=== PATIENT | male | born 1955 | race Caucasian/White ===

== ENCOUNTER → 2020-03-30 06:44 | Outpatient (CLI) | payer OTHER, SELFPAY ==
[2020-03-30 08:33] LABS: Cholesterol 168 mg/dL (140-199); HDL Cholesterol 42 mg/dL (40-60); LDL Cholesterol Calculated 76 mg/dL (<100); Triglycerides 250 mg/dL (35-150)
== END ==
PROVIDERS: PCP Family Medicine; Referring Provider Family Medicine; Visit Provider Family Medicine
DX: E78.5 Hyperlipidemia, unspecified (principal); Z12.5 Encounter for screening for malignant neoplasm of prostate
CPT/HCPCS: 36415; 80061; G0103

== ENCOUNTER → 2022-08-18 09:04 | Outpatient (CLI) | payer MEDICARE, SELFPAY ==
[2022-08-18 09:59] LABS: Add Manual Diff / Slide Review NO; Basophils Absolute Auto 0 /uL (0-100); Basophils Percent Auto 0.9 % (0-2); Eosinophils Absolute Auto 0 /uL (0-450); Hemoglobin 15.3 g/dL (13.5-17.5); Lymphocytes Absolute Auto 1200 /uL (1100-4500); Mean Corpuscular Hemoglobin 29.4 PG (26-34); Mean Corpuscular Volume 86.5 fL (80-100); Monocytes Absolute Auto 500 /uL (0-900); Monocytes Percent Auto 10.1 % (3-14); Neutrophils Absolute Auto 3100 /uL (1500-7000); Platelet Count 167 X10^3/uL (150-400); Red Blood Cell Count 5.21 X10^6/uL (4.5-5.9); Red Cell Distribution Width 14.1 % (11.6-14.8)
[2022-08-18 10:33] LABS: Alanine Aminotransferase 22 IU/L (<50); Albumin 4.2 g/dL (3.5-5.0); Albumin Globulin Ratio 1.6 (1.0-2.8); Alkaline Phosphatase 58 U/L (38-126); Aspartate Aminotransferase 30 IU/L (17-59); Bilirubin Total 1.1 mg/dL (0.2-1.3); Blood Urea Nitrogen 14 mg/dL (9-20); Calcium 8.6 mg/dL (8.4-10.2); Carbon Dioxide 28 mmol/L (22-32); Chloride 105 mmol/L (98-107); Cholesterol 190 mg/dL (140-199); Estimated Glomerular Filt Rate > 60 mL/min (>60); Globulin 2.7 g/dL (1.7-4.1); Glucose 85 mg/dL (80-110); HDL Cholesterol 53 mg/dL (40-60); HEMOLYSIS < 15 (0-50); LDL Cholesterol Calculated 117 mg/dL (<100); Potassium 4.7 mmol/L (3.4-5.1); Sodium 139 mmol/L (137-145); Total Protein 6.9 g/dL (6.3-8.2); Triglycerides 100 mg/dL (35-150)
[2022-08-18 10:58] LABS: Prostate Specific Antigen Scrn 1.82 ng/mL (0.1-4.0)
== END ==
PROVIDERS: PCP Family Medicine; Referring Provider Family Medicine; Visit Provider Family Medicine
DX: E78.1 Pure hyperglyceridemia (principal); Z12.5 Encounter for screening for malignant neoplasm of prostate; J45.909 Unspecified asthma, uncomplicated; N40.1 Benign prostatic hyperplasia with lower urinary tract symptoms; R35.0 Frequency of micturition; Z87.442 Personal history of urinary calculi
CPT/HCPCS: 36415; 80053; 80061; 85025; G0103

== ENCOUNTER → 2023-01-30 14:38 | Outpatient (CLI) | payer MEDICARE, SELFPAY ==
--- NOTE | 2023-01-30 14:39 | DI.RAD.S_ITS ---
PROCEDURE: XR FOOT LT MIN 3V INDICATIONS: LEFT FOOT PAIN TECHNIQUE: 3 views of the foot were acquired. COMPARISON: None. FINDINGS: Bones: No fractures or dislocations. Well-defined plantar and dorsal calcaneal enthesophytes are seen. Mild osteoarthritic changes are noted throughout left foot. No suspicious bony lesions. Soft tissues: No tibiotalar joint effusion. Achilles tendon appears normal. IMPRESSION: No left foot fracture or dislocation. Mild left foot osteoarthritis. Calcaneal enthesophytes. Dictated by: Conrado Prakash M.D. on 01/30/2023 at 16:31 Approved by: Conrado Prakash M.D. on 01/30/2023 at 16:31
== END ==
PROVIDERS: PCP Family Medicine; Referring Provider Family Medicine; Visit Provider Family Medicine
DX: M77.42 Metatarsalgia, left foot (principal); M19.072 Primary osteoarthritis, left ankle and foot; M77.32 Calcaneal spur, left foot
CPT/HCPCS: 73630

== ENCOUNTER → 2023-08-29 14:38 | Outpatient (CLI) | payer MEDICARE, SELFPAY ==
[2023-08-29 15:21] LABS: Add Manual Diff / Slide Review NO; Basophils Absolute Auto 100 /uL (0-100); Basophils Percent Auto 0.6 % (0-2); Eosinophils Absolute Auto 0 /uL (0-450); Eosinophils Percent Auto 0.5 % (2-4); Hematocrit 44.4 % (41-53); Lymphocytes Absolute Auto 1500 /uL (1100-4500); Lymphocytes Percent Auto 17.4 % (25-40); Mean Corpuscular HGB Conc 33.9 % (30-36); Mean Corpuscular Hemoglobin 29.2 PG (26-34); Mean Corpuscular Volume 86.2 fL (80-100); Monocytes Absolute Auto 600 /uL (0-900); Monocytes Percent Auto 7.2 % (3-14); Neutrophils Absolute Auto 6400 /uL (1500-7000); Neutrophils Percent Auto 74.3 % (50-75); Platelet Count 194 X10^3/uL (150-400); Red Blood Cell Count 5.15 X10^6/uL (4.5-5.9); Red Cell Distribution Width 14.1 % (11.6-14.8); White Blood Cell Count 8.6 X10^3/uL (4.5-11.0)
[2023-08-29 16:07] LABS: Alanine Aminotransferase 20 IU/L (<50); Albumin 4.4 g/dL (3.5-5.0); Albumin Globulin Ratio 1.8 (1.0-2.8); Alkaline Phosphatase 65 U/L (38-126); Aspartate Aminotransferase 31 IU/L (17-59); BUN Creatinine Ratio 20.3 (6-22); Bilirubin Total 0.8 mg/dL (0.2-1.3); Blood Urea Nitrogen 13 mg/dL (9-20); Calcium 9.1 mg/dL (8.4-10.2); Carbon Dioxide 29 mmol/L (22-32); Chloride 108 mmol/L (98-107); Cholesterol 178 mg/dL (140-199); Estimated Glomerular Filt Rate > 60 mL/min (>60); Globulin 2.5 g/dL (1.7-4.1); Glucose 79 mg/dL (80-110); HDL Cholesterol 48 mg/dL (40-60); HEMOLYSIS < 15 (0-50); LDL Cholesterol Calculated 97 mg/dL (<100); Potassium 4.4 mmol/L (3.4-5.1); Sodium 140 mmol/L (137-145); Total Protein 6.9 g/dL (6.3-8.2); Triglycerides 165 mg/dL (35-150)
[2023-08-29 16:31] LABS: Prostate Specific Antigen Scrn 1.63 ng/mL (0.1-4.0)
== END ==
PROVIDERS: PCP Family Medicine; Referring Provider Family Medicine; Visit Provider Family Medicine
DX: Z00.00 Encounter for general adult medical examination without abnormal findings (principal); E78.2 Mixed hyperlipidemia; Z12.5 Encounter for screening for malignant neoplasm of prostate; J45.909 Unspecified asthma, uncomplicated; N40.0 Benign prostatic hyperplasia without lower urinary tract symptoms; E78.1 Pure hyperglyceridemia
CPT/HCPCS: 36415; 80053; 80061; 82172; 85025; G0103

== ENCOUNTER → 2024-03-04 14:18 | Outpatient (CLI) | payer MEDICARE, SELFPAY | PROVIDERS: PCP Family Medicine; Visit Provider Physician Assistant | DX: R30.0 Dysuria (principal); R35.0 Frequency of micturition; R35.1 Nocturia | CPT/HCPCS: 87086 ==

== ENCOUNTER → 2024-03-14 10:58 | Outpatient (CLI) | payer MEDICARE, SELFPAY ==
[2024-03-14 12:04] LABS: Add Manual Diff / Slide Review NO; Basophils Absolute Auto 0 /uL (0-100); Basophils Percent Auto 0.7 % (0-2); Eosinophils Absolute Auto 100 /uL (0-450); Hematocrit 43.3 % (41-53); Hemoglobin 14.6 g/dL (13.5-17.5); Lymphocytes Absolute Auto 1200 /uL (1100-4500); Lymphocytes Percent Auto 18.5 % (25-40); Mean Corpuscular HGB Conc 33.6 % (30-36); Mean Corpuscular Volume 86.4 fL (80-100); Monocytes Absolute Auto 500 /uL (0-900); Monocytes Percent Auto 7.2 % (3-14); Neutrophils Absolute Auto 4700 /uL (1500-7000); Neutrophils Percent Auto 72.6 % (50-75); Platelet Count 257 X10^3/uL (150-400); Red Blood Cell Count 5.02 X10^6/uL (4.5-5.9); Red Cell Distribution Width 14.6 % (11.6-14.8); White Blood Cell Count 6.5 X10^3/uL (4.5-11.0)
[2024-03-14 12:22] LABS: Alanine Aminotransferase 20 IU/L (<50); Albumin 4.2 g/dL (3.5-5.0); Albumin Globulin Ratio 1.6 (1.0-2.8); Alkaline Phosphatase 72 U/L (38-126); Aspartate Aminotransferase 32 IU/L (17-59); BUN Creatinine Ratio 16.7 (6-22); Bilirubin Total 0.6 mg/dL (0.2-1.3); Blood Urea Nitrogen 12 mg/dL (9-20); Calcium 9.6 mg/dL (8.4-10.2); Carbon Dioxide 26 mmol/L (22-32); Chloride 106 mmol/L (98-107); Estimated Glomerular Filt Rate > 60 mL/min (>60); Globulin 2.7 g/dL (1.7-4.1); Glucose 84 mg/dL (80-110); HEMOLYSIS < 15 (0-50); Sodium 138 mmol/L (137-145); Total Protein 6.9 g/dL (6.3-8.2)
[2024-03-14 12:48] LABS: Prostate Specific Antigen 2.78 ng/mL (0.10-4.00)
== END ==
PROVIDERS: PCP Family Medicine; Referring Provider Family Medicine; Visit Provider Family Medicine
DX: N40.1 Benign prostatic hyperplasia with lower urinary tract symptoms (principal); N40.0 Benign prostatic hyperplasia without lower urinary tract symptoms
CPT/HCPCS: 36415; 80053; 84153; 85025

== ENCOUNTER 2024-08-13 13:45 | Outpatient (RCR) | payer MEDICARE, SELFPAY ==
--- NOTE | 2024-06-25 16:00 | PT.OIE ---
Current Diagnoses Overactive bladder (06/25/24) Past Medical History (Last Reviewed 04/03/24 @ 16:56 by Emanuel Wooten DO) Actinic keratosis Asbestos exposure Asthma BPH (benign prostatic hyperplasia) Chicken pox Hearing loss Kidney stones (~2008) Skin cancer (~2018) Past Surgical History (Last Reviewed 04/03/24 @ 16:56 by Emanuel Wooten DO) Anesthesia H/O lithotripsy (~2008) Visit Care Team Role Provider Type Westley Morrison MD Family Provider Physician Primary Care Provider Specialty: Family Practice Address: [address] [place] [address] Email: [email or web address] Emanuel Wooten DO Attending Provider Physician Referring Provider Specialty: Urology Address: [address] [place] [address], [facility] Fax: Email: Physical Therapy Initial Evaluation PT-OP-A Visit Information Start: 06/25/24 13:47 Freq: Status: Active Protocol: Document 06/25/24 13:45 [facility] (Rec: 06/25/24 17:16 [facility]ES [facility] [id number]) Out-Patient Physical Therapy Visit Information Visit Information Visit Type Initial Evaluation Visit Start Time 13:45 Visit Stop Time 14:30 Visit Number 1 Evaluation Information Evaluation Date 06/25/24 PT-OP-B Current Condition Start: 06/25/24 13:47 Freq: Status: Active Protocol: Document 06/25/24 13:45 [facility] (Rec: 06/25/24 14:37 [facility]CLUDES [facility] [id number]) Current Condition History of Current Condition Onset Date 5-6 months ago Current Complaints c/o perineum pain, urinary urgency, nocturia History of Current Condition Moises reports he is experiencing pain inbetween the scrotum and rectum that started 5-6 months ago with a insidious onset. His pain is primarily at night or with prolonged sitting. At night it bothers him the most. He reports a increase sense of urinary urgency at night and he is waking 3 times per night . He also feels he needs to know where the bathroom is during the day. The urgency did start before the pain. He describes a pain in the end of the penis as well at times , no pain with erection. 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 HE likes to play [employer] ball and was in [employer] [place] and didn't feel the pain then. During the day he is voiding approx pt is on a vegetarian diet, he drinks very little coffee, he has one cup of tea in the am and one bottle of water. He does feel he could drink more water during the day. Treatment Goals Patient/Caregiver Goals Treatment goals include reducing pain from the perineum and decreasing urinary urgency especially at night. PT-OP-C Subjective Start: 06/25/24 13:47 Freq: Status: Active Protocol: Document 06/25/24 13:45 [facility] (Rec: 06/26/24 12:38 [facility]ES [facility] [id number]) Patient Questionnaires Pelvic Pain and Urgency/Frequency Patient Symptom Scale Pelvic Pain Score 19 Other Questionnaire Name and Score with the Ndze pelvic dysfunction screening protocol Moises reports he sometimes has pelvic pain that exceeds a 3 on the 1-10 pain scale He often has to get up to void 2 or more times per night prolonged sitting increases his symptoms PT-OP-I Pelvic Floor Start: 06/25/24 13:47 Freq: Status: Active Protocol: Document 06/25/24 13:45 [facility] (Rec: 06/26/24 12:38 [facility]CLUDES [facility] [id number]) Pelvic Floor Assessment Urine Pelvic Floor Surgery No Other Urinary Symptoms nocturia, perineum pain that is worse at night or with prolonged sitting, complaints of urinary urgency Voiding Frequency pt was given a bladder diary to fill out but he feels he voids 1xm per hr Nocturia 3 Pelvic Clock Pelvic Clock 3-6 Tightness Pelvic Clock 6-9 Tightness Pelvic Clock 9-12 Tightness Pelvic Clock Other pelvic floor and perineum were assessed externally, there is a pressure type pain with palpation over the perineum, no tenderness at the ischiums B or transverse perineal muscles. Moises has a difficult time relaxing the pelvic floor following a contraction Contraction Ability Voluntary Contraction Moderate Voluntary Relaxation Moderate Comments Pelvic Floor Comments difficulty relaxing the pelvic floor musculature PT-OP-J Posture/Palpation/Skin Start: 06/25/24 13:47 Freq: Status: Active Protocol: Document 06/25/24 13:45 [facility] (Rec: 06/26/24 13:06 [facility]CLUDES [facility] [id number]) Palpation Assessment Location perineum Palpation Findings Soft Tissue Tightness,Muscle Guarding,Tenderness PT-OP-K Range of Motion Start: 06/25/24 17:18 Freq: Status: Active Protocol: Document 06/25/24 13:45 [facility] (Rec: 06/25/24 17:20 [facility] [id number]) Hip Goniometric Range of Motion Hip Active Flexion w/Knee Flexed 90 Straight Leg Raise 55 Internal Rotation 20 External Rotation 25 Left Flexion w/Knee Flexed 90 Straight Leg Raise 45 Internal Rotation 15 External Rotation 20 Hip ROM Limitations Hip ROM Limitations Soft Tissue Tightness Comments hamstring length limited L>R at 45 L 55 R tightness in hip ER/IR decreased hip flexion B PT-OP-Q Treatments Start: 06/25/24 13:47 Freq: Status: Active Protocol: Document 06/25/24 13:45 [facility] (Rec: 06/25/24 17:18 [facility] [id number]) Therapeutic Exercises Supine Exercises piriformis stretch Supine Exercise Name pt to rest ankle on opp knee Side bilateral Reps/Minutes hold 30 sec to a min x 2 modified squat stretch Reps/Minutes hold 1-2 min Self-Care/Home Management Treatment Education Patient Education Home Exercise Program Other Education pt was educated in urge deference technique and bladder irritants were reviewed. PT-OP-T Assessment and Plan Start: 06/25/24 13:47 Freq: Status: Active Protocol: Document 06/25/24 13:45 [facility] (Rec: 06/26/24 09:41 [facility]ES [facility] [id number]) Physical Therapy Assessment Rehab Potential Rehabilitation Potential Good Evaluation Complexity Number of Personal Factors/Comorbidities 1-2 Number of Body Systems Impaired 3 Clinical Presentation at Evaluation Evolving Impairments Impairments Activity Tolerance,Functional Activities,Pain,Soft Tissue Mobility,Strength Other Impairments urnary urgency and nocturia up to 3 times per night Goals 3 Impairment tightness of the hip musculature B L>R and decreased ability to fully relax the pelvic floor Short Term Goal (STG) Moises is instructed in a home program for hip mobility and pelvic floor relaxation STG Duration 4 weeks Karate Instructor Goal (LTG) Moises presents with improved hip flexibility and improved ability to both contract as well as relax the pelvic floor LTG Duration 8 weeks 2 Impairment c/o perineum pain that is worse at night and with prolonged sitting or straining Karate Instructor Goal (LTG) Moises reports a decrease in c/o pain of the perineum and is no longer feeling pain with sitting LTG Duration 8 weeks 1 Impairment nocturia 3 times per night Nursing Home Goal (LTG) Moises reports a overall reduction of of nocturia and is waking 1 or less times per night LTG Duration 8 weeks Assessment Summary Assessment Moises is a 68 year old male referred to PT with overactive bladder symptoms and nocturia but also with complaints a deep aching in the perineal that is primarily at night or after strenous lifting or exercises. He denies any trauma to the perineum and symptoms began approx 5-6 months ago. Past medical history includes benign prostate hyperplasia. With evaluation today Moises is very tight throughout his hips , left greater than right and notes he does not usually work on flexibility. The pelvic floor was evaluated externally and he is tender centrally at the perineum but denies tenderness at the ischium and transverse perineum musulature B. With pelvic floor contraction I am not able to feel a full lift of the pelvic floor and there is not a feeling of full pelvic floor relaxation. Due to the tightness of his hips we will start with stretches for the hips that also help the pelvic floor relax. He mentioned he had been riding a stationary bike for exercise but had stopped that with his pain. This may have irritated the perineum and or possible pundendal nerve irritation or compression. He also reports that he has been lifting heavy objects with work so we discussed avoiding any straining or heavy lifting at this time. PT will include stretches to open the hips and relaxing the pelvic floor muscles. Moises was educated on increasing water intake throughout the day, he was given a bladder diary to track his voids and fluid intake and was educated in the urge deference technique. He is a good candidate for PT Physical Therapy Plan Frequency and Duration Frequency of Treatment 1x/Week Duration of treatment (weeks) 8 Plan of Care Start Date 06/26/24 Plan of Care End Date 08/21/24 Therapeutic Interventions Therapeutic Interventions Home Exercise Program,Manual Therapy,Patient/Caregiver Education,Self-Care/Home Management,Soft Tissue Mobilization,Therapeutic Exercises Modalities Biofeedback,Ultrasound Next Visit Focus/Plan Next Note Type Treatment Note Next Visit Plan review the bladder diary that was given to Moises to assess his fluids and voids, review urge deference technique and how he is doing with that, review stretches for the pelvic floor and perineum and progress hip stretches.
--- NOTE | 2024-06-25 16:00 | PT.OPPOC ---
Physical, Occupational & Speech Therapy At [facility] Current Diagnoses Overactive bladder (06/25/24) Visit Care Team Role Provider Type Westley Morrison MD Family Provider Physician Primary Care Provider Specialty: Family Practice Address: [address] [place] [address], [id number] Email: [email or web address] Emanuel Wooten DO Attending Provider Physician Referring Provider Specialty: Urology Address: [address] [place] [address], [id number] Fax: Email: Plan Of Care PT-OP-B Current Condition Start: 06/25/24 13:47 Freq: Status: Active Protocol: Document 06/25/24 13:45 [facility] (Rec: 06/25/24 14:37 [facility] [id number]) Current Condition History of Current Condition Onset Date 5-6 months ago Current Complaints c/o perineum pain, urinary urgency, nocturia History of Current Condition Moises reports he is experiencing pain in between the scrotum and rectum that started 5-6 months ago with a insidious onset. His pain is primarily at night or with prolonged sitting. At night it bothers him the most. He reports a increase sense of urinary urgency at night and he is waking 3 times per night . He also feels he needs to know where the bathroom is during the day. The urgency did start before the pain. He describes a pain in the end of the penis as well at times , no pain with erection. 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 HE likes to play [employer] and was in [employer] [place] recently and golfed and didn't feel the pain then. During the day he is voiding approx pt is on a vegetarian diet, he drinks very little coffee, he has one cup of tea in the am and one bottle of water. He does feel he could drink more water during the day. Treatment Goals Patient/Caregiver Goals Treatment goals include reducing pain from the perineum and decreasing urinary urgency especially at night. PT-OP-T Assessment and Plan Start: 06/25/24 13:47 Freq: Status: Active Protocol: Document 06/25/24 13:45 [facility] (Rec: 06/26/24 09:41 [facility] [id number]) Physical Therapy Assessment Rehab Potential Rehabilitation Potential Good Evaluation Complexity Number of Personal Factors/Comorbidities 1-2 Number of Body Systems Impaired 3 Clinical Presentation at Evaluation Evolving Impairments Impairments Activity Tolerance,Functional Activities,Pain,Soft Tissue Mobility,Strength Other Impairments urinary urgency and nocturia up to 3 times per night Goals 3 Impairment tightness of the hip musculature B L>R and decreased ability to fully relax the pelvic floor Short Term Goal (STG) Moises is instructed in a home program for hip mobility and pelvic floor relaxation STG Duration 4 weeks [employer] Goal (LTG) Moises presents with improved hip flexibility and improved ability to both contract as well as relax the pelvic floor LTG Duration 8 weeks 2 Impairment c/o perineum pain that is worse at night and with prolonged sitting or straining [employer] Goal (LTG) Moises reports a decrease in c/o pain of the perineum and is no longer feeling pain with sitting LTG Duration 8 weeks 1 Impairment nocturia 3 times per night Jail Goal (LTG) Moises reports a overall reduction of of nocturia and is waking 1 or less times per night LTG Duration 8 weeks Assessment Summary Assessment Moises is a 68 year old male referred to PT with overactive bladder symptoms and nocturia but also with complaints a deep aching in the perineum that is primarily at night or after strenuous lifting or exercises. He denies any trauma to the perineum and symptoms began approx 5-6 months ago. Past medical history includes benign prostate hyperplasia. With evaluation today Moises is very tight throughout his hips , left greater than right and notes he does not usually work on flexibility. The pelvic floor was evaluated externally and he is tender centrally at the perineum but denies tenderness at the ischium and transverse perineum musculature B. With pelvic floor contraction I am not able to feel a full lift of the pelvic floor and there is not a feeling of full pelvic floor relaxation. Due to the tightness of his hips we will start with stretches for the hips that also help the pelvic floor relax. He mentioned he had been riding a stationary bike for exercise but had stopped that with his pain. This may have irritated the perineum and or possible pudendal nerve irritation or compression. He also reports that he has been lifting heavy objects with work so we discussed avoiding any straining or heavy lifting at this time. PT will include stretches to open the hips and relaxing the pelvic floor muscles. Moises was educated on increasing water intake throughout the day, he was given a bladder diary to track his voids and fluid intake and was educated in the urge deference technique. He is a good candidate for PT Physical Therapy Plan Frequency and Duration Frequency of Treatment 1x/Week Duration of treatment (weeks) 8 Plan of Care Start Date 06/26/24 Plan of Care End Date 08/21/24 Therapeutic Interventions Therapeutic Interventions Home Exercise Program,Manual Therapy,Patient/Caregiver Education,Self-Care/Home Management,Soft Tissue Mobilization,Therapeutic Exercises Modalities Biofeedback,Ultrasound Next Visit Focus/Plan Next Note Type Treatment Note Next Visit Plan review the bladder diary that was given to Moises to assess his fluids and voids, review urge deference technique and how he is doing with that, review stretches for the pelvic floor and perineum and progress hip stretches. Plan of Care Dates Plan of Care Start Date 06/26/24 Plan of Care End Date 08/21/24 Electronically Signed by: Bren Lin, PT 06/26/24 0073 If you are in agreement with this Plan of Care, please return a signed and dated copy. I have reviewed this Plan of Care and certify that the skilled therapy services above are required to meet the patient?s needs. Physician Signature Date Printed Name and Credentials Clinical Instructor Signature Printed Name and Credentials
--- NOTE | 2024-07-09 17:09 | PT.OTN ---
Current Diagnoses Stiffness of unspecified hip, not elsewhere classified (07/09/24) Overactive bladder (07/09/24) Pelvic and perineal pain (07/09/24) Physical Therapy Treatment Note PT-OP-A Visit Information Start: 06/25/24 13:47 Freq: Status: Active Protocol: Document 07/09/24 17:01 [facility] (Rec: 07/09/24 17:02 [facility] [id number]) Out-Patient Physical Therapy Visit Information Visit Information Visit Type Treatment Note Visit Start Time 14:30 Visit Stop Time 15:15 Visit Number 2 Evaluation Information Evaluation Date 06/25/24 PT-OP-B Current Condition Start: 06/25/24 13:47 Freq: Status: Active Protocol: Document 06/25/24 13:45 [facility] (Rec: 06/25/24 14:37 [facility] [id number]) Current Condition History of Current Condition Onset Date 5-6 months ago Current Complaints c/o perineum pain, urinary urgency, nocturia History of Current Condition Moises reports he is experiencing pain inbetween the scrotum and rectum that started 5-6 months ago with a insidious onset. His pain is primarily at night or with prolonged sitting. At night it bothers him the most. He reports a increase sense of urinary urgency at night and he is waking 3 times per night . He also feels he needs to know where the bathroom is during the day. The urgency did start before the pain. He describes a pain in the end of the penis as well at times , no pain with erection. 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 HE likes to play [employer] ball and was in [employer] [place] recently and golfed and didn't feel the pain then. During the day he is voiding approx pt is on a vegetarian diet, he drinks very little coffee, he has one cup of tea in the am and one bottle of water. He does feel he could drink more water during the day. Treatment Goals Patient/Caregiver Goals Treatment goals include reducing pain from the perineum and decreasing urinary urgency especially at night. PT-OP-C Subjective Start: 06/25/24 13:47 Freq: Status: Active Protocol: Document 07/09/24 14:31 [facility] (Rec: 07/09/24 15:20 [facility] [id number]) OP-PT Subjective Patient Comments Patient Comments pt notes the pain has gotten better and its not as often, he had a couple nights where he went to the bathroom around 11 and then got up at 6. He has used the urge deference at night and it has helped him. PT-OP-I Pelvic Floor Start: 06/25/24 13:47 Freq: Status: Active Protocol: Document 06/25/24 13:45 [facility] (Rec: 06/26/24 12:38 [facility] [id number]) Pelvic Floor Assessment Urine Pelvic Floor Surgery No Other Urinary Symptoms nocturia, perineum pain that is worse at night or with prolonged sitting, complaints of urinary urgency Voiding Frequency pt was given a bladder diary to fill out but he feels he voids 1xm per hr Nocturia 3 Pelvic Clock Pelvic Clock 3-6 Tightness Pelvic Clock 6-9 Tightness Pelvic Clock 9-12 Tightness Pelvic Clock Other pelvic floor and perineum were assessed externally, there is a pressure type pain with palpation over the perineum, no tenderness at the ischiums B or transverse perineal muscles. Moises has a difficult time relaxing the pelvic floor following a contraction Contraction Ability Voluntary Contraction Moderate Voluntary Relaxation Moderate Comments Pelvic Floor Comments difficulty relaxing the pelvic floor musculature PT-OP-J Posture/Palpation/Skin Start: 06/25/24 13:47 Freq: Status: Active Protocol: Document 06/25/24 13:45 [facility] (Rec: 06/26/24 13:06 [facility] [id number]) Palpation Assessment Location perineum Palpation Findings Soft Tissue Tightness,Muscle Guarding,Tenderness PT-OP-K Range of Motion Start: 06/25/24 17:18 Freq: Status: Active Protocol: Document 06/25/24 13:45 [facility] (Rec: 06/25/24 17:20 [facility] [id number]) Hip Goniometric Range of Motion Hip Active Flexion w/Knee Flexed 90 Straight Leg Raise 55 Internal Rotation 20 External Rotation 25 Left Flexion w/Knee Flexed 90 Straight Leg Raise 45 Internal Rotation 15 External Rotation 20 Hip ROM Limitations Hip ROM Limitations Soft Tissue Tightness Comments hamstring length limited L>R at 45 L 55 R tightness in hip ER/IR decreased hip flexion B PT-OP-Q Treatments Start: 06/25/24 13:47 Freq: Status: Active Protocol: Document 07/09/24 14:31 [facility] (Rec: 07/09/24 15:20 [facility] [id number]) Therapeutic Exercises Supine Exercises single knee to chest stretch Reps/Minutes hold x 1 min each side Comments right hip flexor is tight diaphragmatic breathing Reps/Minutes x 10 reps inhale x 4 sec and exhale x 4 seconds HAMSTRING STRETCH Reps/Minutes HANDS BEHIND KNEE, bend and straighten the knee x 10 reps then hold x 1 min piriformis stretch Supine Exercise Name pt to rest ankle on opp knee Side bilateral Reps/Minutes hold 30 sec to a min x 2 modified squat stretch Reps/Minutes hold 1-2 min Other Exercises marsha pose Reps/Minutes 1-2 min with pelvic floor contract/relax 5 sec hold 10 sec relax Self-Care/Home Management Treatment Education Patient Education Home Exercise Program Other Education urge deference technique and bladder retraining was reviewed, review of bladder diary and bladder irritants, pt was given a HEP with handouts PT-OP-T Assessment and Plan Start: 06/25/24 13:47 Freq: Status: Active Protocol: Document 07/09/24 14:30 [facility] (Rec: 07/09/24 17:06 [facility] [id number]) Physical Therapy Assessment Goals 3 Impairment tightness of the hip musculature B L>R and decreased ability to fully relax the pelvic floor Short Term Goal (STG) Moises is instructed in a home program for hip mobility and pelvic floor relaxation STG Duration 4 weeks Hand Plate Stacker Goal (LTG) Moises presents with improved hip flexibility and improved ability to both contract as well as relax the pelvic floor LTG Duration 8 weeks 2 Impairment c/o perineum pain that is worse at night and with prolonged sitting or straining Hand Plate Stacker Goal (LTG) Moises reports a decrease in c/o pain of the perineum and is no longer feeling pain with sitting LTG Duration 8 weeks 1 Impairment nocturia 3 times per night Nursing Home Goal (LTG) Moises reports a overall reduction of of nocturia and is waking 1 or less times per night LTG Duration 8 weeks Assessment Summary Assessment Moises notes his pain has decreased some since his first visit. He has been working on his stretches and has been doing a yoga class with his . He has been trying to avoid any heavy lifting as this does aggravate his pain. Today we worked on diaphragmatic breathing with pelvic floor relaxation to try before he falls asleep. I introduced pelvic floor contract/relax in marsha pose and he was able to feel the pelvic floor relaxation. No complaints of any pain in supine position today. We discussed using a cushion for sitting as he can feel pain in sitting Physical Therapy Plan Frequency and Duration Frequency of Treatment 1x/Week Duration of treatment (weeks) 8 Plan of Care Start Date 06/26/24 Plan of Care End Date 08/21/24 Therapeutic Interventions Therapeutic Interventions Home Exercise Program,Manual Therapy,Patient/Caregiver Education,Self-Care/Home Management,Soft Tissue Mobilization,Therapeutic Exercises Modalities Biofeedback,Ultrasound Next Visit Focus/Plan Next Note Type Treatment Note Next Visit Plan manual stretching of the iliopsoas next visit, review all stretches and HEP
--- NOTE | 2024-07-17 11:04 | PT.OTN ---
Current Diagnoses Stiffness of unspecified hip, not elsewhere classified (07/16/24) Overactive bladder (07/16/24) Pelvic and perineal pain (07/16/24) Physical Therapy Treatment Note PT-OP-A Visit Information Start: 06/25/24 13:47 Freq: Status: Active Protocol: Document 07/16/24 14:30 [facility] (Rec: 07/16/24 15:20 [facility] [id number]) Out-Patient Physical Therapy Visit Information Visit Information Visit Type Treatment Note Visit Start Time 14:30 Visit Stop Time 15:15 Visit Number 3 Evaluation Information Evaluation Date 06/25/24 PT-OP-B Current Condition Start: 06/25/24 13:47 Freq: Status: Active Protocol: Document 06/25/24 13:45 [facility] (Rec: 06/25/24 14:37 [facility] [id number]) Current Condition History of Current Condition Onset Date 5-6 months ago Current Complaints c/o perineum pain, urinary urgency, nocturia History of Current Condition Moises reports he is experiencing pain inbetween the scrotum and rectum that started 5-6 months ago with a insidious onset. His pain is primarily at night or with prolonged sitting. At night it bothers him the most. He reports a increase sense of urinary urgency at night and he is waking 3 times per night . He also feels he needs to know where the bathroom is during the day. The urgency did start before the pain. He describes a pain in the end of the penis as well at times , no pain with erection. 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 HE likes to play [email or web address] ball and was in [place] recently and golfed and didn't feel the pain then. During the day he is voiding approx pt is on a vegetarian diet, he drinks very little coffee, he has one cup of tea in the am and one bottle of water. He does feel he could drink more water during the day. Treatment Goals Patient/Caregiver Goals Treatment goals include reducing pain from the perineum and decreasing urinary urgency especially at night. PT-OP-C Subjective Start: 06/25/24 13:47 Freq: Status: Active Protocol: Document 07/16/24 14:30 [facility] (Rec: 07/16/24 15:20 [facility] [id number]) OP-PT Subjective Patient Comments Patient Comments pt notes pain is better, he does still have the urge he had one night where he went only 1 times. He notes there is pain after he goes to the bathroom but he notes he can go back to sleep after that. PT-OP-I Pelvic Floor Start: 06/25/24 13:47 Freq: Status: Active Protocol: Document 06/25/24 13:45 [facility] (Rec: 06/26/24 12:38 [facility] [id number]) Pelvic Floor Assessment Urine Pelvic Floor Surgery No Other Urinary Symptoms nocturia, perineum pain that is worse at night or with prolonged sitting, complaints of urinary urgency Voiding Frequency pt was given a bladder diary to fill out but he feels he voids 1xm per hr Nocturia 3 Pelvic Clock Pelvic Clock 3-6 Tightness Pelvic Clock 6-9 Tightness Pelvic Clock 9-12 Tightness Pelvic Clock Other pelvic floor and perineum were assessed externally, there is a pressure type pain with palpation over the perineum, no tenderness at the ischiums B or transverse perineal muscles. Moises has a difficult time relaxing the pelvic floor following a contraction Contraction Ability Voluntary Contraction Moderate Voluntary Relaxation Moderate Comments Pelvic Floor Comments difficulty relaxing the pelvic floor musculature PT-OP-J Posture/Palpation/Skin Start: 06/25/24 13:47 Freq: Status: Active Protocol: Document 06/25/24 13:45 [facility] (Rec: 06/26/24 13:06 [facility] [id number]) Palpation Assessment Location perineum Palpation Findings Soft Tissue Tightness,Muscle Guarding,Tenderness PT-OP-K Range of Motion Start: 06/25/24 17:18 Freq: Status: Active Protocol: Document 06/25/24 13:45 [facility] (Rec: 06/25/24 17:20 [facility] [id number]) Hip Goniometric Range of Motion Hip Active Flexion w/Knee Flexed 90 Straight Leg Raise 55 Internal Rotation 20 External Rotation 25 Left Flexion w/Knee Flexed 90 Straight Leg Raise 45 Internal Rotation 15 External Rotation 20 Hip ROM Limitations Hip ROM Limitations Soft Tissue Tightness Comments hamstring length limited L>R at 45 L 55 R tightness in hip ER/IR decreased hip flexion B PT-OP-Q Treatments Start: 06/25/24 13:47 Freq: Status: Active Protocol: Document 07/16/24 14:30 [facility] (Rec: 07/16/24 15:20 [facility] [id number]) Therapeutic Exercises Supine Exercises single knee to chest stretch Reps/Minutes hold x 1 min each side Comments right hip flexor is tight diaphragmatic breathing Reps/Minutes x 10 reps inhale x 4 sec and exhale x 4 seconds HAMSTRING STRETCH Reps/Minutes HANDS BEHIND KNEE, bend and straighten the knee x 10 reps then hold x 1 min piriformis stretch Supine Exercise Name pt to rest ankle on opp knee Side bilateral Reps/Minutes hold 30 sec to a min x 2 modified squat stretch Reps/Minutes hold 1-2 min PT-OP-T Assessment and Plan Start: 06/25/24 13:47 Freq: Status: Active Protocol: Document 07/16/24 14:30 [facility] (Rec: 07/17/24 11:03 [facility] [id number]) Physical Therapy Assessment Assessment Summary Assessment Moises continues to notes decreased pain. He does mention today that after her voids he will experience the pain. He has voided prior to his treatment and was feeling perineal soreness. We started with the modified squat stretch and after a few minutes of this his pain dissipated. I added in ilioposas stretch today in jessica test position and he tolerated this well. Moises is demonstrating improved mobility of the pelvic floor with contract relax in the marsha pose position Physical Therapy Plan Frequency and Duration Frequency of Treatment 1x/Week Duration of treatment (weeks) 8 Plan of Care Start Date 06/26/24 Plan of Care End Date 08/21/24 Therapeutic Interventions Therapeutic Interventions Home Exercise Program,Manual Therapy,Patient/Caregiver Education,Self-Care/Home Management,Soft Tissue Mobilization,Therapeutic Exercises Modalities Biofeedback,Ultrasound Next Visit Focus/Plan Next Note Type Treatment Note Next Visit Plan add in quadruped adductor dynamic release and trial of sitting on the ball, review all stretches and diaphragmatic breathing next visit
--- NOTE | 2024-07-24 12:54 | PT.OTN ---
Current Diagnoses Stiffness of unspecified hip, not elsewhere classified (07/23/24) Overactive bladder (07/23/24) Pelvic and perineal pain (07/23/24) Physical Therapy Treatment Note PT-OP-A Visit Information Start: 06/25/24 13:47 Freq: Status: Active Protocol: Document 07/23/24 14:30 [facility] (Rec: 07/24/24 12:53 [facility] [id number]) Out-Patient Physical Therapy Visit Information Visit Information Visit Type Treatment Note Visit Start Time 14:30 Visit Stop Time 15:15 Visit Number 4 PT-OP-B Current Condition Start: 06/25/24 13:47 Freq: Status: Active Protocol: Document 06/25/24 13:45 [facility] (Rec: 06/25/24 14:37 [facility] [id number]) Current Condition History of Current Condition Onset Date 5-6 months ago Current Complaints c/o perineum pain, urinary urgency, nocturia History of Current Condition Moises reports he is experiencing pain inbetween the scrotum and rectum that started 5-6 months ago with a insidious onset. His pain is primarily at night or with prolonged sitting. At night it bothers him the most. He reports a increase sense of urinary urgency at night and he is waking 3 times per night . He also feels he needs to know where the bathroom is during the day. The urgency did start before the pain. He describes a pain in the end of the penis as well at times , no pain with erection. 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 HE likes to play [employer] ball and was in [place] recently and golfed and didn't feel the pain then. During the day he is voiding approx pt is on a vegetarian diet, he drinks very little coffee, he has one cup of tea in the am and one bottle of water. He does feel he could drink more water during the day. Treatment Goals Patient/Caregiver Goals Treatment goals include reducing pain from the perineum and decreasing urinary urgency especially at night. PT-OP-C Subjective Start: 06/25/24 13:47 Freq: Status: Active Protocol: Document 07/23/24 14:35 [facility] (Rec: 07/23/24 15:21 [facility] [id number]) OP-PT Subjective Patient Comments Patient Comments pt does still experience the urgency, after he gets up at night to void he can experience pain andthen he does the modified squat stretch and it helps it calm down. Once he lays down after his stretches it takes 5 -10 minutes to calm down the pain. PT-OP-I Pelvic Floor Start: 06/25/24 13:47 Freq: Status: Active Protocol: Document 06/25/24 13:45 [facility] (Rec: 06/26/24 12:38 [facility] [id number]) Pelvic Floor Assessment Urine Pelvic Floor Surgery No Other Urinary Symptoms nocturia, perineum pain that is worse at night or with prolonged sitting, complaints of urinary urgency Voiding Frequency pt was given a bladder diary to fill out but he feels he voids 1xm per hr Nocturia 3 Pelvic Clock Pelvic Clock 3-6 Tightness Pelvic Clock 6-9 Tightness Pelvic Clock 9-12 Tightness Pelvic Clock Other pelvic floor and perineum were assessed externally, there is a pressure type pain with palpation over the perineum, no tenderness at the ischiums B or transverse perineal muscles. Moises has a difficult time relaxing the pelvic floor following a contraction Contraction Ability Voluntary Contraction Moderate Voluntary Relaxation Moderate Comments Pelvic Floor Comments difficulty relaxing the pelvic floor musculature PT-OP-J Posture/Palpation/Skin Start: 06/25/24 13:47 Freq: Status: Active Protocol: Document 06/25/24 13:45 [facility] (Rec: 06/26/24 13:06 [facility] [id number]) Palpation Assessment Location perineum Palpation Findings Soft Tissue Tightness,Muscle Guarding,Tenderness PT-OP-K Range of Motion Start: 06/25/24 17:18 Freq: Status: Active Protocol: Document 06/25/24 13:45 [facility] (Rec: 06/25/24 17:20 [facility] [id number]) Hip Goniometric Range of Motion Hip Active Flexion w/Knee Flexed 90 Straight Leg Raise 55 Internal Rotation 20 External Rotation 25 Left Flexion w/Knee Flexed 90 Straight Leg Raise 45 Internal Rotation 15 External Rotation 20 Hip ROM Limitations Hip ROM Limitations Soft Tissue Tightness Comments hamstring length limited L>R at 45 L 55 R tightness in hip ER/IR decreased hip flexion B PT-OP-Q Treatments Start: 06/25/24 13:47 Freq: Status: Active Protocol: Document 07/23/24 14:30 [facility] (Rec: 07/24/24 12:53 [facility] [id number]) Therapeutic Exercises Supine Exercises diaphragmatic breathing Reps/Minutes x 10 reps inhale x 4 sec and exhale x 4 seconds HAMSTRING STRETCH Reps/Minutes HANDS BEHIND KNEE, bend and straighten the knee x 10 reps then hold x 1 min modified squat stretch Reps/Minutes hold 1-2 min Other Exercises 1/2 kneeling hip flexor stretch Reps/Minutes hold 1 min each side dynamic adductor stretch Other Exercise Name pt given cues to rock back towards feet to release B adductor Reps/Minutes 10 reps each side Self-Care/Home Management Treatment Education Patient Education Home Exercise Program Other Education review of bladder irritants, urge deference technique and bladder retraining PT-OP-T Assessment and Plan Start: 06/25/24 13:47 Freq: Status: Active Protocol: Document 07/23/24 14:30 [facility] (Rec: 07/24/24 12:53 [facility] [id number]) Physical Therapy Assessment Goals 3 Impairment tightness of the hip musculature B L>R and decreased ability to fully relax the pelvic floor Short Term Goal (STG) Moises is instructed in a home program for hip mobility and pelvic floor relaxation STG Duration 4 weeks Medical Data Analyst Goal (LTG) Moises presents with improved hip flexibility and improved ability to both contract as well as relax the pelvic floor LTG Duration 8 weeks 2 Impairment c/o perineum pain that is worse at night and with prolonged sitting or straining Correction Goal (LTG) Moises reports a decrease in c/o pain of the perineum and is no longer feeling pain with sitting LTG Duration 8 weeks 1 Impairment nocturia 3 times per night Correction Goal (LTG) Moises reports a overall reduction of of nocturia and is waking 1 or less times per night LTG Duration 8 weeks Assessment Summary Assessment time was spent today reviewing bladder irritants and Moises's noted that after spicey hot sauce his urgency was increased, we also reviewed the urge deference technique. He was shown a dynamic adductor stretch today in quadruped. Moises reports pain after voiding at night and if he does the stretches for a few minutes this will go away. the urgency is still there but he is working on the urge deference technique Physical Therapy Plan Frequency and Duration Frequency of Treatment 1x/Week Duration of treatment (weeks) 8 Plan of Care Start Date 06/26/24 Plan of Care End Date 08/21/24 Therapeutic Interventions Therapeutic Interventions Home Exercise Program,Manual Therapy,Patient/Caregiver Education,Self-Care/Home Management,Soft Tissue Mobilization,Therapeutic Exercises Modalities Biofeedback,Ultrasound Next Visit Focus/Plan Next Note Type Treatment Note Next Visit Plan review all exercises and check in with Moises if he would like to pursue the EMG biofeedback next visit.
--- NOTE | 2024-08-14 13:42 | PT.OTN ---
Current Diagnoses Stiffness of unspecified hip, not elsewhere classified (08/13/24) Overactive bladder (08/13/24) Pelvic and perineal pain (08/13/24) Physical Therapy Treatment Note PT-OP-A Visit Information Start: 06/25/24 13:47 Freq: Status: Active Protocol: Document 08/13/24 13:45 [facility] (Rec: 08/13/24 14:16 [facility] [id number]) Out-Patient Physical Therapy Visit Information Visit Information Visit Type Progress Note Visit Start Time 13:47 Visit Stop Time 14:30 Visit Number 5 PT-OP-B Current Condition Start: 06/25/24 13:47 Freq: Status: Active Protocol: Document 06/25/24 13:45 [facility] (Rec: 06/25/24 14:37 [facility] [id number]) Current Condition History of Current Condition Onset Date 5-6 months ago Current Complaints c/o perineum pain, urinary urgency, nocturia History of Current Condition Moises reports he is experiencing pain inbetween the scrotum and rectum that started 5-6 months ago with a insidious onset. His pain is primarily at night or with prolonged sitting. At night it bothers him the most. He reports a increase sense of urinary urgency at night and he is waking 3 times per night . He also feels he needs to know where the bathroom is during the day. The urgency did start before the pain. He describes a pain in the end of the penis as well at times , no pain with erection. 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 HE likes to play [employer] ball and was in [place] recently and golfed and didn't feel the pain then. During the day he is voiding approx pt is on a vegetarian diet, he drinks very little coffee, he has one cup of tea in the am and one bottle of water. He does feel he could drink more water during the day. Treatment Goals Patient/Caregiver Goals Treatment goals include reducing pain from the perineum and decreasing urinary urgency especially at night. PT-OP-C Subjective Start: 06/25/24 13:47 Freq: Status: Active Protocol: Document 08/13/24 13:45 [facility] (Rec: 08/13/24 14:16 [facility] [id number]) OP-PT Subjective Patient Comments Patient Comments the urgency is still there and pt notes he still has pain at night after he voids. He feels the stretches at night help and after he voids at night he will lay back in bed and stretch and this helps to decrease the pain. He has a visit with urology on 08/15/24. He is waking 2-times at night. He is drinking 16 oz a day of water and maybe that much tea in a day he thinks. He is not having as much pain with sitting now. He also notes he will have a urge to have a bowel movement after he has already emptied. IF he strains to try to empty his bowels he will get pain. PT-OP-I Pelvic Floor Start: 06/25/24 13:47 Freq: Status: Active Protocol: Document 06/25/24 13:45 [facility] (Rec: 06/26/24 12:38 [facility] [id number]) Pelvic Floor Assessment Urine Pelvic Floor Surgery No Other Urinary Symptoms nocturia, perineum pain that is worse at night or with prolonged sitting, complaints of urinary urgency Voiding Frequency pt was given a bladder diary to fill out but he feels he voids 1xm per hr Nocturia 3 Pelvic Clock Pelvic Clock 3-6 Tightness Pelvic Clock 6-9 Tightness Pelvic Clock 9-12 Tightness Pelvic Clock Other pelvic floor and perineum were assessed externally, there is a pressure type pain with palpation over the perineum, no tenderness at the ischiums B or transverse perineal muscles. Moises has a difficult time relaxing the pelvic floor following a contraction Contraction Ability Voluntary Contraction Moderate Voluntary Relaxation Moderate Comments Pelvic Floor Comments difficulty relaxing the pelvic floor musculature PT-OP-J Posture/Palpation/Skin Start: 06/25/24 13:47 Freq: Status: Active Protocol: Document 06/25/24 13:45 [facility] (Rec: 06/26/24 13:06 [facility] [id number]) Palpation Assessment Location perineum Palpation Findings Soft Tissue Tightness,Muscle Guarding,Tenderness PT-OP-K Range of Motion Start: 06/25/24 17:18 Freq: Status: Active Protocol: Document 06/25/24 13:45 [facility] (Rec: 06/25/24 17:20 [facility] [id number]) Hip Goniometric Range of Motion Hip Active Flexion w/Knee Flexed 90 Straight Leg Raise 55 Internal Rotation 20 External Rotation 25 Left Flexion w/Knee Flexed 90 Straight Leg Raise 45 Internal Rotation 15 External Rotation 20 Hip ROM Limitations Hip ROM Limitations Soft Tissue Tightness Comments hamstring length limited L>R at 45 L 55 R tightness in hip ER/IR decreased hip flexion B PT-OP-Q Treatments Start: 06/25/24 13:47 Freq: Status: Active Protocol: Document 08/13/24 13:45 [facility] (Rec: 08/13/24 16:24 [facility] [id number]) Therapeutic Exercises Supine Exercises piriformis stretch Supine Exercise Name pt to rest ankle on opp knee Side bilateral Reps/Minutes hold 30 sec to a min x 2 Comments used miracle balls as a self release modified squat stretch Reps/Minutes hold 1-2 min Self-Care/Home Management Treatment Education Patient Education Body Mechanics,Home Exercise Program,Pain Management Other Education pt was educated in a pelvic wand for self release of the levator ani muscles via the rectum. I also discussed manual therapy techniques for MFR of the levator ani that I could do along with EMG biofeedback to work on pelvic floor relaxation PT-OP-T Assessment and Plan Start: 06/25/24 13:47 Freq: Status: Active Protocol: Document 08/13/24 13:45 [facility] (Rec: 08/13/24 16:29 [facility] [id number]) Physical Therapy Assessment Goals 3 Impairment tightness of the hip musculature B L>R and decreased ability to fully relax the pelvic floor Short Term Goal (STG) Moises is instructed in a home program for hip mobility and pelvic floor relaxation goal met STG Duration 4 weeks Bullet Slug Casting Machine Operator Goal (LTG) Moises presents with improved hip flexibility and improved ability to both contract as well as relax the pelvic floor good improvements with improved flexibility and Moises is able to relax the pelvic floor now at rest. He is tight in the pelvic floor following voiding and needs to stretch into a happy baby pose to calm down tension for 1-2 min and this seems to take away the pain at night LTG Duration 8 weeks 2 Impairment c/o perineum pain that is worse at night and with prolonged sitting or straining Bullet Slug Casting Machine Operator Goal (LTG) Moises reports a decrease in c/o pain of the perineum and is no longer feeling pain with sitting pt notes pain with sitting is more intermittent now, he has pain at night after voiding. Once he stretches his pelvic floor the pain then goes away LTG Duration 8 weeks 1 Impairment nocturia 3 times per night Bullet Slug Casting Machine Operator Goal (LTG) Moises reports a overall reduction of of nocturia and is waking 1 or less times per night Pt is still waking 2-3 times per night to void LTG Duration 8 weeks Assessment Summary Assessment Moises is working on stretches for the pelvic floor and for his hips. He continues to notes pain at night in the perineum and it seems to be worse after he gets up to void . He can calm down the pain by doing his stretches in bed. He is having daily bowel movements 2-3 times per day but beyond that will experience the sensation to have a bowel movement but once he tries to empty there is nothing there. IF he strains then he will experience pain. I have educated Moises on manual therapy(MFR) techniques I could work on via the rectum as well as EMG biofeedback to help with pelvic floor resting tone. He was educated today on use of a pelvic wand via the rectum to help relax the levator ani. I feel he may benefit from manual therapy treatment however he has been reluctant to try as it is via the rectum. He was shown how to use Myofascial release balls to help release the gluteals for home as well. I feel he has been very good about doing his stretches and manual therapy techniques may be helpful to him. I would be happy to continue PT should he want to try manual therapy techniques for the pelvic floor. Physical Therapy Plan Frequency and Duration Frequency of Treatment 1x/Week Duration of treatment (weeks) 8 Plan of Care Start Date 08/13/24 Plan of Care End Date 10/08/24 Therapeutic Interventions Therapeutic Interventions Home Exercise Program,Manual Therapy,Patient/Caregiver Education,Self-Care/Home Management,Soft Tissue Mobilization,Therapeutic Exercises Modalities Biofeedback,Ultrasound Next Visit Focus/Plan Next Note Type Treatment Note Next Visit Plan manual MFR for the levator ani next visit, EMG biofeedback with rectal sensor if pt agrees
--- NOTE | 2024-08-14 13:43 | PT.OPPOC ---
Physical, Occupational & Speech Therapy At [facility] Current Diagnoses Stiffness of unspecified hip, not elsewhere classified (08/13/24) Overactive bladder (08/13/24) Pelvic and perineal pain (08/13/24) Visit Care Team Role Provider Type Westley Morrison MD Family Provider Physician Primary Care Provider Specialty: Family Practice Address: [address] [place] [address], [id number] Email: [email or web address] Emanuel Wooten DO Attending Provider Physician Referring Provider Specialty: Urology Address: [address] [place] [address], [id number] Fax: Email: Plan Of Care PT-OP-B Current Condition Start: 06/25/24 13:47 Freq: Status: Active Protocol: Document 06/25/24 13:45 [facility] (Rec: 06/25/24 14:37 [facility] [id number]) Current Condition History of Current Condition Onset Date 5-6 months ago Current Complaints c/o perineum pain, urinary urgency, nocturia History of Current Condition Moises reports he is experiencing pain in between the scrotum and rectum that started 5-6 months ago with a insidious onset. His pain is primarily at night or with prolonged sitting. At night it bothers him the most. He reports a increase sense of urinary urgency at night and he is waking 3 times per night . He also feels he needs to know where the bathroom is during the day. The urgency did start before the pain. He describes a pain in the end of the penis as well at times , no pain with erection. 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 HE likes to play [place] ball and was in [place] recently and golfed and didn't feel the pain then. During the day he is voiding approx pt is on a vegetarian diet, he drinks very little coffee, he has one cup of tea in the am and one bottle of water. He does feel he could drink more water during the day. Treatment Goals Patient/Caregiver Goals Treatment goals include reducing pain from the perineum and decreasing urinary urgency especially at night. PT-OP-T Assessment and Plan Start: 06/25/24 13:47 Freq: Status: Active Protocol: Document 08/13/24 13:45 [facility] (Rec: 08/13/24 16:29 [facility] [id number]) Physical Therapy Assessment Goals 3 Impairment tightness of the hip musculature B L>R and decreased ability to fully relax the pelvic floor Short Term Goal (STG) Moises is instructed in a home program for hip mobility and pelvic floor relaxation goal met STG Duration 4 weeks Group Home Goal (LTG) Moises presents with improved hip flexibility and improved ability to both contract as well as relax the pelvic floor good improvements with improved flexibility and Moises is able to relax the pelvic floor now at rest. He is tight in the pelvic floor following voiding and needs to stretch into a happy baby pose to calm down tension for 1-2 min and this seems to take away the pain at night LTG Duration 8 weeks 2 Impairment c/o perineum pain that is worse at night and with prolonged sitting or straining Group Home Goal (LTG) Moises reports a decrease in c/o pain of the perineum and is no longer feeling pain with sitting pt notes pain with sitting is more intermittent now, he has pain at night after voiding. Once he stretches his pelvic floor the pain then goes away LTG Duration 8 weeks 1 Impairment nocturia 3 times per night Division Superintendent Goal (LTG) Moises reports a overall reduction of of nocturia and is waking 1 or less times per night Pt is still waking 2-3 times per night to void LTG Duration 8 weeks Assessment Summary Assessment Moises is working on stretches for the pelvic floor and for his hips. He continues to notes pain at night in the perineum and it seems to be worse after he gets up to void . He can calm down the pain by doing his stretches in bed. He is having daily bowel movements 2-3 times per day but beyond that will experience the sensation to have a bowel movement but once he tries to empty there is nothing there. IF he strains then he will experience pain. I have educated Moises on manual therapy(MFR) techniques I could work on via the rectum as well as EMG biofeedback to help with pelvic floor resting tone. He was educated today on use of a pelvic wand via the rectum to help relax the levator ani. I feel he may benefit from manual therapy treatment however he has been reluctant to try as it is via the rectum. He was shown how to use Myofascial release balls to help release the gluteals for home as well. I feel he has been very good about doing his stretches and manual therapy techniques may be helpful to him. I would be happy to continue PT should he want to try manual therapy techniques for the pelvic floor. Physical Therapy Plan Frequency and Duration Frequency of Treatment 1x/Week Duration of treatment (weeks) 8 Plan of Care Start Date 08/13/24 Plan of Care End Date 10/08/24 Therapeutic Interventions Therapeutic Interventions Home Exercise Program,Manual Therapy,Patient/Caregiver Education,Self-Care/Home Management,Soft Tissue Mobilization,Therapeutic Exercises Modalities Biofeedback,Ultrasound Next Visit Focus/Plan Next Note Type Treatment Note Next Visit Plan manual MFR for the levator ani next visit, EMG biofeedback with rectal sensor if pt agrees Plan of Care Dates Plan of Care Start Date 08/13/24 Plan of Care End Date 10/08/24 Electronically Signed by: Bren Lin, PT 08/14/24 [id number] If you are in agreement with this Plan of Care, please return a signed and dated copy. I have reviewed this Plan of Care and certify that the skilled therapy services above are required to meet the patient?s needs. Physician Signature Date Printed Name and Credentials Clinical Instructor Signature Printed Name and Credentials
--- NOTE | 2024-09-24 08:31 | PT.OPDS ---
Current Diagnoses Stiffness of unspecified hip, not elsewhere classified (08/13/24) Overactive bladder (08/13/24) Pelvic and perineal pain (08/13/24) Visit Care Team Role Provider Type Westley Morrison MD Family Provider Physician Primary Care Provider Specialty: Family Practice Address: [address] [place] [address] Email: [email or web address] Emanuel Wooten DO Attending Provider Physician Referring Provider Specialty: Urology Address: [address] [place] [address], [id number] Fax: Email: Visit Number Visit Number 5 Discharge Summary PT-OP-B Current Condition Start: 06/25/24 13:47 Freq: Status: Active Protocol: Document 06/25/24 13:45 [facility] (Rec: 06/25/24 14:37 [facility] [id number]) Current Condition History of Current Condition Onset Date 5-6 months ago Current Complaints c/o perineum pain, urinary urgency, nocturia History of Current Condition Moises reports he is experiencing pain inbetween the scrotum and rectum that started 5-6 months ago with a insidious onset. His pain is primarily at night or with prolonged sitting. At night it bothers him the most. He reports a increase sense of urinary urgency at night and he is waking 3 times per night . He also feels he needs to know where the bathroom is during the day. The urgency did start before the pain. He describes a pain in the end of the penis as well at times , no pain with erection. 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 HE likes to play [place] ball and was in [place] recently and golfed and didn't feel the pain then. During the day he is voiding approx pt is on a vegetarian diet, he drinks very little coffee, he has one cup of tea in the am and one bottle of water. He does feel he could drink more water during the day. Treatment Goals Patient/Caregiver Goals Treatment goals include reducing pain from the perineum and decreasing urinary urgency especially at night. PT-OP-C Subjective Start: 06/25/24 13:47 Freq: Status: Active Protocol: Document 08/13/24 13:45 [facility] (Rec: 08/13/24 14:16 [facility] [id number]) OP-PT Subjective Patient Comments Patient Comments the urgency is still there and pt notes he still has pain at night after he voids. He feels the stretches at night help and after he voids at night he will lay back in bed and stretch and this helps to decrease the pain. He has a visit with urology on 08/15/24. He is waking 2-times at night. He is drinking 16 oz a day of water and maybe that much tea in a day he thinks. He is not having as much pain with sitting now. He also notes he will have a urge to have a bowel movement after he has already emptied. IF he strains to try to empty his bowels he will get pain. PT-OP-I Pelvic Floor Start: 06/25/24 13:47 Freq: Status: Active Protocol: Document 06/25/24 13:45 [facility] (Rec: 06/26/24 12:38 [facility] [id number]) Pelvic Floor Assessment Urine Pelvic Floor Surgery No Other Urinary Symptoms nocturia, perineum pain that is worse at night or with prolonged sitting, complaints of urinary urgency Voiding Frequency pt was given a bladder diary to fill out but he feels he voids 1xm per hr Nocturia 3 Pelvic Clock Pelvic Clock 3-6 Tightness Pelvic Clock 6-9 Tightness Pelvic Clock 9-12 Tightness Pelvic Clock Other pelvic floor and perineum were assessed externally, there is a pressure type pain with palpation over the perineum, no tenderness at the ischiums B or transverse perineal muscles. Moises has a difficult time relaxing the pelvic floor following a contraction Contraction Ability Voluntary Contraction Moderate Voluntary Relaxation Moderate Comments Pelvic Floor Comments difficulty relaxing the pelvic floor musculature PT-OP-J Posture/Palpation/Skin Start: 06/25/24 13:47 Freq: Status: Active Protocol: Document 06/25/24 13:45 [facility] (Rec: 06/26/24 13:06 [facility] [id number]) Palpation Assessment Location perineum Palpation Findings Soft Tissue Tightness,Muscle Guarding,Tenderness PT-OP-K Range of Motion Start: 06/25/24 17:18 Freq: Status: Active Protocol: Document 06/25/24 13:45 [facility] (Rec: 06/25/24 17:20 [facility] [id number]) Hip Goniometric Range of Motion Hip Active Flexion w/Knee Flexed 90 Straight Leg Raise 55 Internal Rotation 20 External Rotation 25 Left Flexion w/Knee Flexed 90 Straight Leg Raise 45 Internal Rotation 15 External Rotation 20 Hip ROM Limitations Hip ROM Limitations Soft Tissue Tightness Comments hamstring length limited L>R at 45 L 55 R tightness in hip ER/IR decreased hip flexion B PT-OP-T Assessment and Plan Start: 06/25/24 13:47 Freq: Status: Active Protocol: Document 09/24/24 08:30 [facility] (Rec: 09/24/24 08:31 [facility] [id number]) Physical Therapy Assessment Goals 3 Impairment tightness of the hip musculature B L>R and decreased ability to fully relax the pelvic floor Short Term Goal (STG) Moises is instructed in a home program for hip mobility and pelvic floor relaxation goal met STG Duration 4 weeks Staff Nuclear Weapons Officer Goal (LTG) Moises presents with improved hip flexibility and improved ability to both contract as well as relax the pelvic floor good improvements with improved flexibility and Moises is able to relax the pelvic floor now at rest. He is tight in the pelvic floor following voiding and needs to stretch into a happy baby pose to calm down tension for 1-2 min and this seems to take away the pain at night LTG Duration 8 weeks 2 Impairment c/o perineum pain that is worse at night and with prolonged sitting or straining Staff Nuclear Weapons Officer Goal (LTG) Moises reports a decrease in c/o pain of the perineum and is no longer feeling pain with sitting pt notes pain with sitting is more intermittent now, he has pain at night after voiding. Once he stretches his pelvic floor the pain then goes away LTG Duration 8 weeks 1 Impairment nocturia 3 times per night Half-Way Goal (LTG) Moises reports a overall reduction of of nocturia and is waking 1 or less times per night Pt is still waking 2-3 times per night to void LTG Duration 8 weeks Physical Therapy Plan Discharge Physical Therapy Discharge Reasons No Longer Attending PT Discharge Comments pt wishes to hold off on further PT at this time and will follow up with his primary physician should he decide to do further PT
== END 2024-09-27 13:34 | disposition home or self-care (01) ==
LOC: PHYS 13:45
PROVIDERS: Family Provider Family Medicine; PCP Family Medicine; Referring Provider Urology; Visit Provider Urology
DX: N32.81 Overactive bladder (principal); R10.2 Pelvic and perineal pain; M25.659 Stiffness of unspecified hip, not elsewhere classified
CPT/HCPCS: 97110; 97162; 97535

== ENCOUNTER → 2024-09-27 09:59 | Outpatient (CLI) | payer MEDICARE, SELFPAY ==
[2024-09-27 10:24] LABS: Add Manual Diff / Slide Review NO; Basophils Absolute Auto 0 /uL (0-100); Basophils Percent Auto 0.5 % (0-2); Eosinophils Absolute Auto 100 /uL (0-450); Eosinophils Percent Auto 0.9 % (2-4); Hematocrit 44.7 % (41-53); Hemoglobin 15.3 g/dL (13.5-17.5); Lymphocytes Absolute Auto 1200 /uL (1100-4500); Lymphocytes Percent Auto 19.3 % (25-40); Mean Corpuscular HGB Conc 34.1 % (30-36); Mean Corpuscular Hemoglobin 29.4 PG (26-34); Mean Corpuscular Volume 86.3 fL (80-100); Monocytes Absolute Auto 500 /uL (0-900); Monocytes Percent Auto 8.5 % (3-14); Neutrophils Absolute Auto 4400 /uL (1500-7000); Neutrophils Percent Auto 70.8 % (50-75); Platelet Count 191 X10^3/uL (150-400); Red Blood Cell Count 5.19 X10^6/uL (4.5-5.9); Red Cell Distribution Width 14.6 % (11.6-14.8); White Blood Cell Count 6.3 X10^3/uL (4.5-11.0)
[2024-09-27 10:53] LABS: Alanine Aminotransferase 17 IU/L (<50); Albumin 4.3 g/dL (3.5-5.0); Albumin Globulin Ratio 1.8 (1.0-2.8); Alkaline Phosphatase 68 U/L (38-126); Aspartate Aminotransferase 27 IU/L (17-59); BUN Creatinine Ratio 25.8 (6-22); Bilirubin Total 0.8 mg/dL (0.2-1.3); Blood Urea Nitrogen 16 mg/dL (9-20); Calcium 9.1 mg/dL (8.4-10.2); Carbon Dioxide 25 mmol/L (22-32); Chloride 106 mmol/L (98-107); Estimated Glomerular Filt Rate > 60 mL/min (>60); Globulin 2.4 g/dL (1.7-4.1); Glucose 85 mg/dL (70-99); HEMOLYSIS < 15 (0-50); Potassium 4.5 mmol/L (3.4-5.1); Sodium 138 mmol/L (137-145); Total Protein 6.7 g/dL (6.3-8.2)
[2024-09-30 16:10] LABS: PSA Free % 21.3 % (.); PSA, Total 1.6 ng/mL (0.0-4.0)
== END ==
PROVIDERS: Family Provider Family Medicine; PCP Family Medicine; Referring Provider Family Medicine; Visit Provider Family Medicine
DX: R39.9 Unspecified symptoms and signs involving the genitourinary system (principal); Z12.5 Encounter for screening for malignant neoplasm of prostate; N32.81 Overactive bladder
CPT/HCPCS: 36415; 80053; 84153; 84154; 85025

== ENCOUNTER 2024-11-28 19:52 | Emergency (ER) | payer MEDICARE, SELFPAY ==
[2024-11-28 20:06] VITALS: BP 144/65; PULSE 68; RESP 20; TEMP 36.7; O2SAT 98; BMI 24.4
[2024-11-28] MEDS: PROPARACAINE 0.5% OPHTH SOL 1 DROPS EYE-BOTH ×3 (20:30→23:15)
--- NOTE | 2024-11-28 22:51 | ED.EYEPROB ---
HPI - Eye Problem General Chief complaint: Eye Problems Stated complaint: Eye irritation, was working outdoors Time Seen by Provider: 11/28/24 19:55 Source: patient Mode of arrival: Ambulatory History of Present Illness HPI Narrative: 69-year-old gentleman history of dyslipidemia, hyper triglyceridemia, history of kidney stone, overactive bladder, presents with both eyes exposure to rust ring removal liquid now having burning sensation in both eyes. He was not wearing any safety goggles when this occurred. He did not take anything prior to arrival here. Other than what is stated 14 point review of systems negative. Related Data Home Medications ?Medication ?Instructions ?Recorded ?Confirmed ascorbic acid (vitamin C) 1,000 mg 1 g PO Q6H 04/03/24 11/05/24 tablet cholecalciferol (vitamin D3) 25 25 mcg PO DAILY 04/03/24 11/05/24 mcg (1,000 unit) capsule vit H-etca-Vjdug ginseng-herbal tab PO 04/03/24 11/05/24 complex no.62 75 mg tablet Previous Rx's ?Medication ?Instructions ?Recorded oxybutynin chloride 10 mg 10 mg PO BEDTIME #60 tabs 11/05/24 tablet,extended release 24 hr Allergies Allergy/AdvReac Type Severity Reaction Status Date / Time No Known Drug Allergies Allergy Verified 11/28/24 20:06 Review of Systems Review of Systems ROS Unobtainable: All systems reviewed & are unremarkable except as noted in HPI and below Patient History Medical History (Updated 11/29/24 @ 00:03 by Marco Antonio Caraballo DO) Asthma Chicken pox Hearing loss Skin cancer (~2017) Asbestos exposure Actinic keratosis Kidney stones (~2008) Surgical History Anesthesia H/O lithotripsy (~2008) Family History Mother Cancer Father Skin cancer History of heart disease Hypertension Social History marital status: number of children: 2 occupational status: previously employed 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 Well-developed patient, in mild distress. HEAD: Atraumatic. Normocephalic. EYES: Pupils equal round and reactive. Extraocular motions intact. No scleral icterus. Bilateral conjunctival injection ENT: Nose without bleeding, purulent drainage. Throat without erythema, tonsillar hypertrophy or exudate. Airway patent. NECK: Trachea midline. Non tender EXTREMITIES: No edema or joint tenderness. BACK: Nontender without deformity or crepitance. No flank tenderness. NEURO: AOx3. SKIN: No rash or erythema of visible areas Initial Vital Signs Initial Vital Signs: Vital Signs Temperature 98.0 F 11/28/24 20:06 Pulse Rate 68 11/28/24 20:06 Respiratory Rate 20 11/28/24 20:06 Blood Pressure 144/65 H 11/28/24 20:06 Pulse Oximetry 98 11/28/24 20:06 Oxygen Delivery Method Room Air 11/28/24 20:06 Course Orders Ordered: Proparacaine HCl (Proparacaine 0.5% Ophth Sheryl) 1 drops EYE-BOTH PRN PRN PRN Reason: Pain, Moderate (4-6) Vital Signs Vital signs: Vital Signs - 8 hr 11/28/24 20:06 Temperature 98.0 F Pulse Rate 68 Respiratory Rate 20 Blood Pressure 144/65 H Pulse Oximetry 98 Oxygen Delivery Method Room Air MDM - Eye Problem MDM Narrative Medical decision making narrative: All labwork, vital signs, printing services coordinator note, vital signs, previous ER visits all reviewed. Pt intial pH both eyes 7.0, preparcaine eye drops applied and ayanna lens flushed and on repeat 7.4 bilateral eye. Differential dx b/l eye chemical burn eye, acid vs alkaline burn. F/U with EYE MD tommo or Monday if no improvement in symptoms. Discharge Plan Departure Patient Disposition: Home Clinical Impression: Chemical burn of eye Instructions: DI for Chemical Eye Burn Activity Restrictions/Additional Instructions: Return with new or worsening symptoms. Follow up with EYE MD tomorrow on Monday if no improvement in symptoms Prescriptions: No Action oxybutynin chloride 10 mg tablet extended release 24hr 10 mg PO BEDTIME Qty: 60 0RF cholecalciferol (vitamin D3) 25 mcg (1,000 unit) capsule 25 mcg PO DAILY ascorbic acid (vitamin C) 1,000 mg tablet 1 g PO Q6H vit C-kpky-Alnpc [id number]-[id number] 75 mg tablet PO Referrals: Westley Morrison MD [Primary Care Provider, Family Practice] Stand Alone Forms: Patient Portal/API
--- NOTE | 2024-11-28 23:15 | PC.NURSE ---
pH checked in both eyes [address] Caraballo
--- NOTE | 2024-11-29 | PC.NURSE ---
pH test 8 results and strips given to Dr Caraballo
[2024-11-29 00:17] VITALS: BP 136/84; PULSE 72; RESP 18; O2SAT 100
== END 2024-11-29 00:19 | disposition home or self-care (01) ==
PROVIDERS: Emergency Provider Family Medicine; Family Provider Family Medicine; PCP Family Medicine
DX: T26.91XA Corrosion of right eye and adnexa, part unspecified, initial encounter (principal); T26.92XA Corrosion of left eye and adnexa, part unspecified, initial encounter
CPT/HCPCS: 99282; 99284

== ENCOUNTER → 2025-02-18 08:46 | Outpatient (CLI) | payer MEDICARE, SELFPAY ==
--- NOTE | 2025-02-18 08:47 | DI.CT.S_ITS ---
PROCEDURE: CT ABDOMEN PELVIS W CON INDICATIONS: Pain before and after urinating, sharp perineal pains TECHNIQUE: After the administration of intravenous contrast, axial sections acquired from the lung bases to the pubic symphysis. Coronal and sagittal reformats were performed. For radiation dose reduction, the following was used: automated exposure control, adjustment of mA and/or kV according to patient size. COMPARISON: None. FINDINGS: Image quality: Diagnostic. Lower Chest: No significant findings. ABDOMEN: Liver: 1.1 centimeter indeterminate hypoattenuating lesion in segment 6 (series 2, image 50) . Gallbladder: No radiopaque gallstones or wall thickening. Biliary ducts: No biliary dilation. Pancreas: No ductal dilation. Spleen: Size is within normal limits. Adrenal Glands: No adrenal nodules. Kidneys and Ureters: 4.1 x 3.4 centimeter partially exophytic mass off the posterior margin of the right kidney. There is abutment of the adjacent musculature, without definite evidence of invasion. Renal vein appears widely patent. The mass does not contact the renal collecting system. Stomach and Bowel: Normal colonic caliber, without significant wall thickening. Colonic diverticulosis without evidence of diverticulitis. Peritoneum: No abnormal intraperitoneal fluid. No free air. Ventral Wall: No significant ventral hernia. Abdominal Nodes: No retroperitoneal or mesenteric adenopathy by size criteria. Vessels: Aorta and inferior vena cava are normal in size. PELVIS: Pelvic Organs: Unremarkable. Bladder: 5.0 x 5.5 centimeter mass closely associated with the right lateral bladder wall (series 2, image 122). Pelvic Nodes: No enlarged lymph nodes. Miscellaneous: No inguinal hernias are seen. Bones: No aggressive osseous abnormality. Ankylosis of the sacroiliac joints. IMPRESSION: 5.0 x 5.5 centimeter mass closely associated with the right lateral bladder wall. 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 No pelvic adenopathy. Recommend urology referral for cystoscopy/tissue sampling. Additional 4.1 x 3.4 centimeter mass along the posterior margin of the right kidney, concerning for incidental renal cell carcinoma. No evidence of invasion of the perirenal fascia or adjacent organs. Renal vein appears patent. No retroperitoneal adenopathy. No Recommend urology referral. Indeterminate 1.1 centimeter hypoattenuation liver lesion. Consider liver MRI for complete characterization (hepatic mass protocol) . Dictated by: Alan Bustamante M.D. on 02/18/2025 at 10:14 Approved by: Alan Bustamante M.D. on 02/18/2025 at 10:20
[2025-02-18 09:27] LABS: Estimated Glomerular Filt Rate > 60 mL/min (>60)
== END ==
LOC: CT 08:47
PROVIDERS: PCP Family Medicine; Referring Provider Family Medicine; Visit Provider Family Medicine
DX: N28.89 Other specified disorders of kidney and ureter (principal); N32.89 Other specified disorders of bladder; K76.89 Other specified diseases of liver; R10.20 Pelvic and perineal pain unspecified side; R39.9 Unspecified symptoms and signs involving the genitourinary system; N32.81 Overactive bladder
CPT/HCPCS: 36415; 74177; 82565; Q9967

== ENCOUNTER → 2025-04-11 15:37 | Outpatient (CLI) | payer MEDICARE, SELFPAY ==
--- NOTE | 2025-04-11 16:01 | DI.CT.S_ITS ---
PROCEDURE: CT CHEST WO CON INDICATIONS: Malignant neoplasm of connective and soft tissue, TECHNIQUE: Noncontrast 5 mm thick sections acquired from the pulmonary apices to the posterior costophrenic angles. 1 mm lung window, 5 mm thick coronal and sagittal and 7 mm axial MIP reformats were then acquired. For radiation dose reduction, the following was used: automated exposure control, adjustment of mA and/or kV according to patient size. COMPARISON: [facility], CT, CT ABDOMEN PELVIS W CON, 02/18/2025, 9:53. FINDINGS: Image quality: Diagnostic. Lower Neck: No enlarged lymph nodes. Thyroid: No thyroid nodules which require sonographic follow up, per consensus guidelines. Axillae: No enlarged lymph nodes. Chest Wall: Unremarkable. Bones: Sclerotic change occupies the vertebral body marrow space of what appears to be T4.. Lungs and Pleura: No pneumothorax or pleural effusions. No consolidation suggestive of pneumonia is found. However, there are multiple bilateral small sub 5 mm suspicious nodules potentially representing early multifocal pulmonary metastatic disease. On the right: Series 3, images 42, 50, 56, 15, 2 166, 216, 238. On the left: Series 3, images 41, 49, 151, 175, 176, 190, 197, 199, 200. Heart: Heart size is normal. No pericardial effusion. Thoracic Vessels: The aorta and pulmonary arteries demonstrate normal size. Mediastinum and Re: No enlarged lymph nodes. Esophagus: No wall thickening. No hiatal hernia. Upper Abdomen: Visualized upper abdomen solid organs and bowel loops appear normal. IMPRESSION: 1. Multiple sub 5 mm pulmonary nodules are present involving the lungs bilaterally, all pulmonary segments. In this clinical circumstance multifocal metastatic disease is the likely cause. 2. Sclerotic medullary space change involving T4, diffusely. A pathologic compression fracture is not associated. Additional whole-body bone scanning likely is warranted. Dictated by: Corey Lazaro M.D. on 04/11/2025 at 16:39 Approved by: Corey Lazaro M.D. on 04/11/2025 at 16:55
== END ==
LOC: CT 15:38
PROVIDERS: PCP Family Medicine; Referring Provider Family Medicine; Visit Provider Urology
DX: C49.9 Malignant neoplasm of connective and soft tissue, unspecified (principal); R91.8 Other nonspecific abnormal finding of lung field
CPT/HCPCS: 71250